=== PATIENT | male | born 1970 | race Caucasian/White ===

== ENCOUNTER 2016-06-07 09:17 | Emergency (ER) | payer BC ==
[2016-06-07 09:31] VITALS: BP 145/86; PULSE 78; RESP 16; TEMP 98.2; O2SAT 97
--- NOTE | 2016-06-07 10:08 | UCPHY ---
H & P Time Seen by Provider: 06/07/16 09:36 Patient Type: New HPI/ROS: HPI Testicular pain. 45-year-old male by private vehicle. This patient reports that he woke up with left-sided testicular pain. He describes this as a dull ache involving mostly the pole and body of the testicle with radiation up into the left lower quadrant. He described it as getting kicked in the nuts. He states that his pain is much better now. There is no history of blunt trauma, twisting or other traumatic event. He has never had this pain before. No hematuria. He is not sexually active at this time. ROS: Constitutional: No fever, no chills. No weakness. Cardiac: No chest pain, no palpitations. Gastrointestinal: As above, no vomiting, no diarrhea. Genitourinary: No hematuria. No dysuria or increased frequency with urination. As above. Musculoskeletal: No back pain. No neck pain. No myalgias or arthralgias. Skin: No rashes. Neurological: No headache. No focal weakness or altered sensation. Past medical history: Prior history of kidney infections. Social history: Here by himself. Physical Exam: General Appearance: Alert, no distress. This patient is responding to questions appropriately and in full sentences. This patient appears well- hydrated and well-nourished. Eyes: Pupils equal and round no pallor or injection. No lid edema, erythema or injection. Testicular exam: Normal testicular lie, no discoloration, erythema, warmth, no swelling or tenderness on palpation. The epididymis is nontender on the left side. No masses appreciated. No evidence of inguinal hernia on clinical exam bilaterally. Gastrointestinal: Abdomen is soft and nontender, no masses, bowel sounds normal. No focal tenderness at McBurney's point. No Morales sign. Neurological: Motor sensory function is grossly intact. Cranial nerves are normal. Gait is normal. Skin: Warm and dry, no rashes. Musculoskeletal: No CVA tenderness on palpation. Extremities are symmetrical. All joints range without pain or impingement. Psychiatric: No agitation. No depression. Database: EKG: Imaging: Testicular ultrasound: Normal. No evidence of torsion or other pathology. Results discussed with staff radiologist Dr. Claudio Bejarano. Procedures: Emergency department course: Patient is declining pain medication at this time. He appears comfortable. Testicular ultrasound was ordered from triage and is pending. We will also awaiting a urine sample from the patient. 10:50 a.m., patient is provided us with a urine sample. Results of his ultrasound were discussed. Patient currently denies any significant pain. 11:35 a.m., patient re-evaluated. Resting comfortably at this time. Results of urinalysis discussed. Likely cause of pain was probably a kidney stone which he has passed now repeat abdominal exam he is soft, nontender and nondistended. Urinalysis is significant for blood as well as white cells. Although infection is unlikely he does have a prior history of pyelonephritis. I will start him on Keflex pending culture results. He feels comfortable going home and I feel he is safe for discharge. I discussed follow-up with a primary care physician as well as Urology. Return to Urgent Care/emergency department precautions reviewed. All of his questions were answered. He was discharged in good condition. Differential Diagnosis: The differential diagnosis on this patient includes but is not limited to epididymitis, testicular torsion, orchitis. This represents a partial list of diagnoses considered. These considerations are based on history, physical exam , past history, reassessment and diagnostic testing. Smoking Status: Current every day smoker Constitutional: Initial Vital Signs Temperature (C) 36.8 C 06/07/16 09:25 Heart Rate 78 06/07/16 09:25 Respiratory Rate 16 06/07/16 09:25 Blood Pressure 145/86 H 06/07/16 09:25 O2 Sat (%) 97 06/07/16 09:25 O2 Delivery Mode Room Air Allergies/Adverse Reactions: No Known Allergies Allergy (Unverified 06/07/16 09:30) Home Medications: Medication Instructions Recorded Cephalexin [Keflex (*)] 500 mg PO Q6 7 Days 06/07/16 Medical Decision Making - Data Points Laboratory Results: 06/07/16 11:05 Urine Color RED Urine Appearance CLOUDY Urine pH 5.5 (5.0-7.5) Ur Specific [place] 1.025 (1.002-1.030) Urine Protein 1+ H (NEGATIVE) Urine Ketones NEGATIVE (NEGATIVE) Urine Blood 3+ H (NEGATIVE) Urine Nitrate NEGATIVE (NEGATIVE) Urine Bilirubin NEGATIVE (NEGATIVE) Urine Urobilinogen 0.2 EU (0.2-1.0) Ur Leukocyte Esterase NEGATIVE (NEGATIVE) Urine RBC >182 H /hpf (0-3) Urine WBC 25-50 H /hpf (0-3) Ur Epithelial Cells TRACE /lpf (NONE-1+) Urine Bacteria 1+ H /hpf (NONE SEEN) Urine Mucus TRACE /lpf (NONE-1+) Ur Culture Indicated? INDICATED H (NI) Urine Glucose 1+ H (NEGATIVE) C.trachomatis RNA (TMA) Pending N.gonorrhoeae RNA (TMA) Pending Medications Given: Discontinued Medications Cephalexin HCl (Keflex) 500 mg PO EDNOW ONE PRN Reason: Protocol Stop: 06/07/16 11:44 Last Admin: 06/07/16 11:52 Dose: 500 mg Departure - Departure Disposition: Home, Routine, Self-Care Clinical Impression: Left testicular pain, Hematuria, Pyuria, Probable kidney stone Condition: Good Instructions: Testicle Pain (ED), Kidney Stones (ED) Additional Instructions: Read and follow provided instructions. Follow-up with Urology, Dr. Irwin or 1 of his partners for re-evaluation this week. Take antibiotic as prescribed until culture results on urinalysis or back. If the culture results are negative you can discontinue antibiotics. Culture results should be available tomorrow afternoon or by . Ibuprofen dosin mg every 6 hours with meals for the next 3 days only. Return to the emergency department immediately for worsening pain, blood in urine, fever, back pain or other serious concerns. Referrals: Robert Irwin MD [Medical Doctor] - As per Instructions Hemanth Malloy MD [Medical Doctor] - As per Instructions Prescriptions: Cephalexin [Keflex (*)] 500 mg PO Q6 7 Days - PQRS PQRS Measurement: Not applicable.
--- NOTE | 2016-06-07 10:44 | US ---
Testicular Sonogram Clinical Indications: Left testicular pain. Technique: Scrotal contents were imaged with the high-resolution transducer. Color and pulsed Doppl er/duplex were recorded on each side. Findings: Right testis measures 4.6 x 2.5 x 3.1 cm and left testis measures 4.6 x 2.2 x 3.2 cm. Both testes are homogeneous in echogenicity without intratesticular masses. Duplex/Doppler signals are nor mal, without evidence of torsion or inflammation. No epididymal enlargement. No hydrocele or varicoc saulo. Impression: Normal ultrasound testes. Findings and recommendations discussed with Emergency Department physician, Dr. Chiang at 1040 h our, today. Final report concurs with initial preliminary interpretation.
[2016-06-07 11:06] LABS: COLOR RED; LEUKOCYTE ESTERASE,URINE NEGATIVE (NEGATIVE); NITRITE,URINE NEGATIVE (NEGATIVE); PH,URINE 5.5 (5.0-7.5)
[2016-06-07 11:16] LABS: BACTERIA 1+ /hpf (NONE SEEN); MUCUS TRACE /lpf (NONE-1+); RBC,URINE >182 /hpf (0-3); WBC,URINE 25-50 /hpf (0-3)
[2016-06-07] MEDS ORDERED: CEPHALEXIN 500 MG CAP PO ONE (11:43)
[2016-06-08 13:05] LABS: CHLAMYDIA AMPLIFICATION GENPRB NEGATIVE (NEGATIVE)
== END 2016-06-07 11:52 | disposition home or self-care (01) ==
LOC: CED 09:17
DX: N50.812 Left testicular pain (principal); R10.32 Left lower quadrant pain; Z87.442 Personal history of urinary calculi
CPT/HCPCS: 76870-PO; 81003-PO; 81015-PO; 99203-PO; G0463-PO